=== PATIENT | female | born 1995 | race Two or more races ===

== ENCOUNTER 2025-01-26 10:48 | Emergency (ER) | payer MEDICAID, SELFPAY ==
[2025-01-26 11:07] VITALS: BP 111/74; PULSE 86; RESP 16; TEMP 37; O2SAT 98; BMI 27.9
--- NOTE | 2025-01-26 11:16 | XR_ITS ---
Examination: Pelvic ultrasound, transabdominal, complete Technique: Transabdominal ultrasound of the pelvis performed using grayscale imaging Date and time of exam: January 26, 2025 1123 hours INDICATIONS: Pelvic pain and heavy bleeding beginning 4 days ago, vaginal FINDINGS: Uterus 10.6 cm endometrial stripe 1.8 cm Subserosal uterine body area of fibroid degeneration 5.1 x 4.5 x 5.2 cm left lower lateral uterus Right ovary 3.1 cm arterial flow Left ovary 3.7 cm arterial flow IMPRESSION: Lower lateral left uterine body area of fibroid degeneration 5.1 x 4.5 x 5.2 cm, recommend 6 month follow-up transvaginal pelvic sonography
--- NOTE | 2025-01-26 11:16 | PD.EDRME ---
Rapid Medical Screening Exam RME Arrival date/time: 01/26/25 10:48 30-year-old female presents the emergency department for complaints of pelvic pain patient reports history of ovarian cyst Chief Complaint: Abdominal Pain Vital signs: Vital Signs Temperature 98.6 F 01/26/25 11:07 Pulse Rate 86 01/26/25 11:07 Respiratory Rate 16 01/26/25 11:07 Blood Pressure 111/74 01/26/25 11:07 Pulse Oximetry (%) 98 01/26/25 11:07 Oxygen Delivery Method Room Air 01/26/25 11:07
[2025-01-26] MEDS: HYDROcodone/APAP 5/325 TABLET 1 TAB PO (11:20)
[2025-01-26 12:24] LABS: Collection Type, Urine Clean Catch; RBC,Urine 0 /hpf (0-3); Squamous Epithelial Cell,Urine 0 /hpf (0-5); WBC,Urine 0 /hpf (0-5)
[2025-01-26 12:37] LABS: Basophils % (Auto) 0 % (0-2.5); Eosinophils % (Auto) 0 % (0-10); Hematocrit 36.5 % (36.0-46.0); Hemoglobin 12.7 g/dL (12.0-16.0); Immature Granulocytes % (Auto) 0 % (0-0); Immature Granulocytes Auto 0.04 Thou/mm3 (0.00-0.00); Lymphocytes # (Auto) 1.2 Thou/mm3 (1.0-4.8); Lymphocytes % (Auto) 8 % (10-50); Mean Corpuscular HGB Conc 34.8 g/dl (31.0-37.0); Mean Corpuscular Hemoglobin 30.8 pg (25.0-35.0); Mean Corpuscular Volume 89 fL (80-100); Monocytes # (Auto) 0.7 Thou/mm3 (0.0-0.8); Monocytes % (Auto) 5 % (0-12); Neutrophils # (Auto) 12.9 Thou/mm3 (1.8-7.7); Neutrophils % (Auto) 87 % (37-80); Nucleated Red Blood Cell % 0 /100 WBC (0); Platelet Count 269 Thou/mm3 (140-440); RDW Standard Deviation 40.4 fL (36.4-46.3); Red Blood Count 4.12 Miln/mm3 (4.00-5.20); White Blood Count 14.9 Thou/mm3 (3.6-11.0)
[2025-01-26 12:38] LABS: HCG Qualitative,Urine Positive
[2025-01-26 12:41] LABS: Bilirubin,Urine Negative (Negative); Blood,Urine 3+ (Negative); Culture Indicated,Urine Not Indicated; Glucose, Urine Negative (Negative); Ketones,Urine 2+ (Negative); Leukocyte Esterase,Urine Positive (Negative); Nitrite,Urine Negative (Negative); PH,Urine 5.5 (5.0-7.0); Protein,Urine 1+ (Neg - Trace); Specific Gravity,Urine 1.019 (1.001-1.035); Urobilinogen,Urine Negative mg/dL (0.0-1.0)
[2025-01-26 12:43] LABS: Clarity,Urine Bloody (Clear/Hazy); Color,Urine Red (Lt Yel-Yel)
[2025-01-26 13:16] LABS: Alanine Aminotransferase 17 U/L (10-49); Albumin, Serum 4.9 gm/dL (3.5-5.0); Albumin/Globulin Ratio 1.6 (1.2-2.2); Alkaline Phosphatase 85 U/L (46-116); Anion Gap 10 (7-16); Aspartate Amino Transferase 17 U/L (0-34); BUN/Creatinine Ratio 8 Ratio (12-20); Bilirubin,Total 0.8 mg/dL (0.3-1.2); Blood Urea Nitrogen < 5 mg/dL (9-23); Calcium 8.8 mg/dL (8.3-10.6); Calcium (Corrected) 8.8 mg/dL (8.5-10.1); Carbon Dioxide 24.6 mMol/L (20.0-31.0); Chloride 103 mMol/L (98-107); Creatinine (Component) 0.6 mg/dL (0.6-1.3); Glucose 150 mg/dL (74-106); Lipase 29 U/L (12-53); Osmolality,Calculated 275 (275-295); Potassium 3.7 mMol/L (3.4-5.1); Sodium 138 mMol/L (136-145); Total Protein 7.9 gm/dL (5.7-8.2); eGFR > 60 See Note
--- NOTE | 2025-01-26 14:44 | XR_ITS ---
Examination: OB Transvaginal ultrasound of the pelvis, complete Technique: Transvaginal sonographic images pelvis performed using michelle scale imaging Exam date and time: January 26, 2025 1538 hours INDICATIONS: Positive hCG today FINDINGS: Uterus 10.5 cm endometrial stripe 2.0 cm Intrauterine gestational sac 0.9 cm corresponding to 5 weeks 5 day gestational age, lower uterine segment, no pole, no cardiac activity Uterine area of fibroid degeneration 5.3 cm Right ovary obscured by bowel gas Left ovary 2.7 cm arterial flow IMPRESSION: Findings consistent with spontaneous in progress, recommend short-term follow-up
[2025-01-26 14:45] VITALS: BP 108/73; PULSE 84; RESP 16; TEMP 36.8; O2SAT 98
--- NOTE | 2025-01-26 14:46 | EDNOTE_ITS ---
<Statement entered by Mariam Birch MD - 01/27/25 06:24> As co-signing physician, I was present and available for consult prn. I concur with the plan and care as documented by the midlevel provider. ED OB Contraction Preg RMI/HPI General Chief complaint: Abdominal Pain Stated complaint: menstrual pain after 3 months of no period Time Seen by Provider: 01/26/25 12:43 Arrival date/time: 01/26/25 10:48 30-year-old female presents to the ED with complaint of painful vaginal bleeding . She had a 3-month episode of no vaginal bleeding and then started having heavy vaginal bleeding with cramping. She indicates she has not used control since the beginning of the year. She did a test in November which was negative. Mode of arrival: ambulatory Limitations: no limitations RME / HPI RME / HPI Narrative: 01/26/25 10:48 30-year-old female presents the emergency department for complaints of pelvic pain patient reports history of ovarian cyst Related Data Allergies Allergy/AdvReac Type Severity Reaction Status Date / Time No Known Drug Allergies Allergy Verified 01/26/25 10:52 Review of Systems Review of Systems Systems Reviewed: All systems reviewed, normal except as documented Past Medical History Past Medical History Comments PMH COMMENT: Ovarian cyst ED Exam Narrative Physical exam: Very pleasant 30-year-old female, no acute distress, nontoxic-appearing. General Limitations: Present no limitations General appearance: Present alert and in no apparent distress Head Head exam: Present atraumatic and normal inspection Eye Eye exam: Present normal appearance; Absent scleral icterus or conjunctival injection ENT ENT exam: Present normal exam Neck Neck exam: Present normal inspection Chest Chest inspection: Present normal inspection Respiratory Respiratory exam: Absent respiratory distress Cardiovascular Cardiovascular exam: Present regular rate and normal rhythm Abdominal Exam Abdominal exam: Absent distention Extremities Exam Extremities exam: Present normal inspection Back Exam Back exam: Present full ROM Neurological Exam Neurological exam: Present alert and oriented X3 Psychiatric Psychiatric exam: Present normal affect and normal mood Skin Skin exam: Present warm, dry, intact and normal color Course Course Course Narrative: 30-year-old female presents to the ED with complaint of painful vaginal bleeding. She had a 3-month episode of no vaginal bleeding and then started having heavy vaginal bleeding with cramping. She indicates she has not used control since the beginning of the year. She did a test in November which was negative. Very pleasant 30-year-old female, alert and oriented, no acute distress, nontoxic-appearing. Lungs are clear, no respiratory distress noted, abdomen is nondistended. Skin is warm normal color and dry. Labs reveal white count of 14.9, H&H normal, platelets normal CMP is an essentially normal with the exception of an elevated glucose of 150. Urinalysis reveals bloody red urine with 1+ protein, 2+ Ketones, 3+ blood, positive leukocyte esterase and no bacteria. hCG is positive. Quant is greater than 5000. Pelvic ultrasound: Lower lateral left uterine body area of fibroid degeneration 5.1 x 4.5 x 5.2 cm, recommend 6 month follow-up transvaginal pelvic sonography. Transvaginal ultrasound: Findings consistent with spontaneous in progress, recommend short-term follow-up Quality Measures none Orders Category Date Time Status US OB transvaginal Stat Exams 01/26/25 14:44 Completed US pelvic complete Stat Exams 01/26/25 11:16 Completed Beta HCG,Quantitative Stat Lab 01/26/25 12:27 Completed CBC Stat Lab 01/26/25 12:27 Completed Comprehensive Metabolic Panel Stat Lab 01/26/25 12:27 Completed HCG Qualitative,Urine Stat Lab 01/26/25 12:16 Completed Lipase Stat Lab 01/26/25 12:27 Completed UA, C/S IF [Urinalysis, C/S if Indicated] Stat Lab 01/26/25 12:16 Completed HYDROcodone*/APAP 5/325 [[facility] 5/325] Med 01/26/25 11:16 Discontinued 1 tab PO X1 ONE Vital Signs Vital signs: Vital Signs Temperature 98.6 F 01/26/25 11:07 Pulse Rate 86 01/26/25 11:07 Respiratory Rate 16 01/26/25 11:07 Blood Pressure 111/74 01/26/25 11:07 Pulse Oximetry (%) 98 01/26/25 11:07 Oxygen Delivery Method Room Air 01/26/25 11:07 Vaginal Bleeding MDM Narrative MDM Narrative: 30-year-old female presents to the ED with complaint of painful vaginal bleeding. She had a 3-month episode of no vaginal bleeding and then started having heavy vaginal bleeding with cramping. She indicates she has not used control since the beginning of the year. She did a test in November which was negative. Very pleasant 30-year-old female, alert and oriented, no acute distress, n ontoxic-appearing. Lungs are clear, no respiratory distress noted, abdomen is nondistended. Skin is warm normal color and dry. Labs reveal white count of 14.9, H&H normal, platelets normal CMP is an essentially normal with the exception of an elevated glucose of 150. Urinalysis reveals bloody red urine with 1+ protein, 2+ Ketones, 3+ blood, positive leukocyte esterase and no bacteria. hCG is positive. Quant is greater than 5000. Pelvic ultrasound: Lower lateral left uterine body area of fibroid degeneration 5.1 x 4.5 x 5.2 cm, recommend 6 month follow-up transvaginal pelvic sonography. Transvaginal ultrasound: Findings consistent with spontaneous in progress, recommend short-term follow-up Patient data External records reviewed:: None Clinical information provided by:: patient Social determinants that could affect healthcare access:: none Patient has the following chronic illnesses:: Ovarian cysts How is presenting disease/condition affected by chronic disease/condition?: uneffected by Evaluation data The following diagnostics were reviewed and interpreted by me:: lab results and radiology exam(s) Lab and/or radiology exams considered but not ordered:: Labs reveal white count of 14.9, H&H normal, platelets normal CMP is an essentially normal with the exception of an elevated glucose of 150. Urinalysis reveals bloody red urine with 1+ protein, 2+ Ketones, 3+ blood, positive leukocyte esterase and no bacteria. hCG is positive. Quant is greater than 5000. Interpretation Summary: Labs reveal white count of 14.9, H&H normal, platelets normal CMP is an essentially normal with the exception of an elevated glucose of 150. Urinalysis reveals bloody red urine with 1+ protein, 2+ Ketones, 3+ blood, positive leukocyte esterase and no bacteria. hCG is positive. Pelvic ultrasound reveals FINDINGS: Uterus 10.6 cm endometrial stripe 1.8 cm. Subserosal uterine body area of fibroid degeneration 5.1 x 4.5 x 5.2 cm left lower lateral uterus Right ovary 3.1 cm arterial flow Left ovary 3.7 cm arterial flow IMPRESSION: Lower lateral left uterine body area of fibroid degeneration 5.1 x 4.5 x 5.2 cm, recommend 6 month follow-up transvaginal pelvic sonography Transvaginal US: FINDINGS: Uterus 10.5 cm endometrial stripe 2.0 cm Intrauterine gestational sac 0.9 cm corresponding to 5 weeks 5 day gestational age, lower uterine segment, no pole, no cardiac activity Uterine area of fibroid degeneration 5.3 cm Right ovary obscured by bowel gas Left ovary 2.7 cm arterial flow IMPRESSION: Findings consistent with spontaneous in progress, recommend short-term follow-up Medications / Prescriptions Medications or Prescriptions considered but not ordered:: None Medication administrations:: Medication Administration History Discontinued Medications Hydrocodone Bitart/Acetaminophen (Hydrocodone/Apap 5/325 Tablet) 1 tab PO X1 ONE Stop: 01/26/25 11:17 Last Admin: 01/26/25 11:20 Dose: 1 tab Documented By: LT Hydrocodone 5 mg p.o. Consultations Consultation(s) initiated? (list below): No Diagnosis Vaginal Bleeding Differential Diagnosis: missed , threatened , dysfunctional uterine bleeding, menometrorrhagia, incomplete , ectopic without intrauterine and vaginal bleeding Most likely diagnosis given after review of the tests above:: Spontaneous miscarriage. Admission Indicated Admission indicated?: not indicated Explain why admission is indicated or not indicated:: Patient is stable for discharge with a normal H&H Admission Request Was there a request for admission?: No Disposition Plan Disposition Plan: Discharge Discharge Attestation Discharge Attestation: The patient and all family members were given an opportunity to ask questions and understood the discharge instructions. Discharge instructions specifically effects, indications for sooner follow up or return to the emergency department, and the expected course of current diagnosis. Patient condition: Stable Discharge Plan Plan Patient Disposition: HOME (Self Care) Discharge Disposition comment: Stable Prescriptions/Referrals Referrals: Derick Rodriguez MD [Primary Care Provider] - In 1 week Problem List Clinical Impression: Spontaneous miscarriage Patient/Caregiver Discharge Instructions Education Materials: ED MISCARRIAGE Completed, ED Possible Miscarriage ... Additional Instructions: According to the ultrasound, you are currently having a spontaneous miscarriage. If you develop any new or worsening symptoms including worsening bleeding, feeling lightheaded, dizzy or weak, return to the emergency room as you may need a D&C. Otherwise follow-up with your SYSTEMS SOFTWARE MANAGER in 24 to 48 hours. Follow-up with your primary care physician in 24 to 48 hours. Return to the ED for any new or worsening symptoms. Print Language: [place] Stand Alone Forms: Shyann Award Info., Patient Portal Info Letter PA/MERCHANDISE ASSOCIATE Supervising Physician PA/MERCHANDISE ASSOCIATE Supervising Physician: Dr. Birch
[2025-01-26 15:45] LABS: Beta HCG,Quantitative > 5000 mIU/mL (<5.0)
[2025-01-26 16:10] VITALS: BP 115/77; PULSE 87; RESP 16; TEMP 36.8; O2SAT 99
== END 2025-01-26 17:33 | disposition home or self-care (01) ==
PROVIDERS: Nurse Practitioner Primary Care; Emergency Provider Emergency Medicine; PCP Obstetrics & Gynecology
DX: O03.9 Complete or unspecified spontaneous abortion without complication (principal); D25.2 Subserosal leiomyoma of uterus
CPT/HCPCS: 36415; 76817; 76856; 80053; 81001; 81025; 83690; 84702; 85025; 99284; A9270